=== PATIENT | male | born 1975 | race Caucasian/White ===

== ENCOUNTER 2020-04-23 15:50 | Day surgery (SDC) | payer BC ==
[2020-04-20 10:19] VITALS: BMI 33.7
[~2020-04-23 15:50] MED LIST: SODIUM CHLORIDE 0.9% 1,000 ML IV SCH
[2020-04-23 16:41] VITALS: TEMP 97.8
[2020-04-23] MEDS ORDERED: LIDOCAINE 1% INJ 10MG/ML (20 ML MDV) ONE (17:18)
[2020-04-23] MEDS ORDERED: MIDAZOLAM 2 MG/2 ML VIAL IV ONE (17:27)
[2020-04-23] MEDS ORDERED: LIDOCAINE 1% INJ 10MG/ML (20 ML MDV) SQ ONE (17:27)
[2020-04-23 17:31] VITALS: RESP 17
[2020-04-23 17:40] VITALS: BP 128/79; PULSE 65
--- NOTE | 2020-04-23 17:44 | P.PCN ---
Preoperative Diagnosis: Loop explant under sedation and local anesthesia. Patient was brought to the EP lab in a fasting state. Written informed consent was obtained prior to the procedure. The subcutaneous device was successfully explanted under local anesthesia. Preoperative antibiotics were administered. The wound was closed in layers and dressed per protocol. Result: Successful loop monitor explantation. Patient underwent EP procedure under conscious sedation/moderate sedation, monitoring of the level of consciousness and physiologic parameters including but not limited to vital signs and oxygenation. Patient tolerated the procedure well without any acute complications. Start time: 1726 Stop time: 1739 13 minutes
== END 2020-04-23 18:00 | disposition home or self-care (01) ==
LOC: CATHEP 15:50
PROVIDERS: ATTEND Internal Medicine Clinical Cardiac Electrophysiology
DX: Z45.09 Encounter for adjustment and management of other cardiac device (principal); I42.8 Other cardiomyopathies; R07.89 Other chest pain; I10 Essential (primary) hypertension; Z86.73 Personal history of transient ischemic attack (TIA), and cerebral infarction without residual deficits; Z79.899 Other long term (current) drug therapy; Z79.82 Long term (current) use of aspirin
CPT/HCPCS: 33286; J2250; J0690; J2001

== ENCOUNTER → 2020-09-19 | Outpatient (CLI) | payer BC ==
--- NOTE | 2020-09-19 17:06 | CONS ---
CONSULTATION DATE OF SERVICE: 09/19/2020 A 44-year-old gentleman who has been evaluated in [facility] for possible obstructive sleep apnea-hypopnea syndrome. HISTORY OF PRESENT ILLNESS/SLEEP-WAKE EVALUATION: Patient usual sleep schedule on working days from 12:00 pm until 5 a.m., on weekends from 11 p.m. to 5 a.m. No problems with falling asleep. No TV in bedroom. He usually sleeps on the side position. He wakes up from sleep up to 3 times. According to his , he snores during the day. He usually does not take naps. [place] Sleepiness Scale is 2. No history of hypnagogic hallucinations, sleep paralysis, or cataplexy. PAST MEDICAL HISTORY: Positive for stroke in 2016 with some developing asymmetry of the face and weakness in the body, hypertension, hyperlipidemia, acid reflux. SOCIAL HISTORY: Negative for smoking, alcohol consumption occasional. MEDICATIONS: Aspirin 81 mg once a day, lisinopril 10 mg once a day, Atorvastatin 80 mg once a day, spironolactone 25 mg once a day. REVIEW OF SYSTEMS: Snoring, awakenings from sleep. FAMILY HISTORY: Hypertension, hyperlipidemia, lung problems, snoring, cancer, diabetes. PHYSICAL EXAM: gentleman without distress, BP 140/75, HR 78, RR 16, height 5 feet 10-1/2 inches, weight 266 pounds, BMI 37.6, temperature is 98,0, oxygen saturation at room air 98%. OROPHARYNX: Low position of soft palate, Mallampati 3, wide neck 18 inches in circumference. ABDOMEN: Slightly obese. NECK: Supple, no JVD. Thyroid is not palpable. LUNGS: Clear to percussion and to auscultation. Good air exchange. No wheezing or rhonchi. HEART: S1, S2 regular. No murmurs, gallops, or rubs. EXTREMITIES: No clubbing or cyanosis. FIBRE CEMENT MOULDER: Awake, alert, and oriented X3. Cranial nerves 2 to 7 intact. There is no fasciculation or atrophy. noted. No focal deficits observed. IMPRESSION: 1. Snoring, awakenings from sleep, low position of soft palate, Mallampati 3, wide neck 18 inches in circumference, obstructive sleep apnea-hypopnea syndrome. 2. History of stroke. 3. Hypertension. 4. History of hyperlipidemia. 5. Acid reflux. PLAN: 1. Polysomnography for evaluation of patient's breathing during sleep. 2. CPAP/BiPAP titration if sleep study confirms obstructive sleep apnea-hypopnea syndrome. 3. Preferable position during sleep on the side. 4. No driving if patient feels any sleepiness. 5. I will see patient for follow up visit to explain results of testing and following plan. Thank you very much for referring this patient for consultation. Sincerely, Jerome Goldstein MD, PhD, FAASM Diplomat of [employer] [facility] Manager [facility] [place] MMODL / IJN: [id number] /
== END | disposition home or self-care (01) ==
LOC: SLEEP 16:01
PROVIDERS: ATTEND Internal Medicine
DX: G47.33 Obstructive sleep apnea (adult) (pediatric) (principal); I10 Essential (primary) hypertension; K21.9 Gastro-esophageal reflux disease without esophagitis; Z86.79 Personal history of other diseases of the circulatory system; Z86.2 Personal history of diseases of the blood and blood-forming organs and certain disorders involving the immune mechanism; Z79.82 Long term (current) use of aspirin; Z79.899 Other long term (current) drug therapy
CPT/HCPCS: 99211

== ENCOUNTER → 2021-02-19 | Outpatient (CLI) | payer BC ==
--- NOTE | 2021-02-19 13:21 | US ---
EXAMINATION TYPE: US abdomen complete DATE OF EXAM: 02/19/2021 COMPARISON: NONE CLINICAL HISTORY: R10.9 Right Flank pain. right back and flank pain x 3 days, large body habitus and bowel gas severely limits scan EXAM MEASUREMENTS: Liver Length: 17.8 cm Gallbladder Wall: 0.2 cm CBD: N/A Spleen: N/A Right Kidney: 11.3 x 3.5 x 5.4 cm Left Kidney: 13.4 x 6.3 x 3.7 cm Pancreas: not seen due to bowel gas Liver: left lobe obscured by bowel gas, intercostal imaging only Gallbladder: wnl Evidence for sonographic Brito's sign: no CBD: not seen due to bowel gas Spleen: not seen due to bowel gas Right Kidney: wnl Left Kidney: wnl Upper IVC: not seen due to bowel gas Abd Aorta: not seen due to bowel gas IMPRESSION: 1. Limited assessment due to overlying bowel gas as noted above.
--- NOTE | 2021-02-19 13:49 | XR ---
EXAMINATION TYPE: XR ribs RT w pa chest xray DATE OF EXAM: 02/19/2021 COMPARISON: 01/20/2013 TECHNIQUE: PA and lateral views submitted. HISTORY: Rib pain FINDINGS: The lungs are clear and there is no pneumothorax, pleural effusion, or focal pneumonia. Rib cage is intact. IMPRESSION: 1. No acute process.
== END | disposition home or self-care (01) ==
LOC: RADUSWWP 12:41
PROVIDERS: ATTEND Family Medicine
DX: R07.81 Pleurodynia (principal); R10.9 Unspecified abdominal pain; M54.9 Dorsalgia, unspecified
CPT/HCPCS: 76700